=== PATIENT | female | born 1975 | race Caucasian/White ===

== ENCOUNTER → 2017-12-19 | Outpatient (CLI) | payer OTHER ==
[~2017-12-19] MED LIST: ANTI DEPRESSANT PO; BUSP5 PO; Bactrim Ds Tab1 EACH PO; CLON.5 PO; CLON1; CYCL10 PO; DIPH50 PO; ESCI10 PO; HYDR1TAB94 PO; IBUP600 PO; IBUP800 PO; LORA1 PO; MELO7.5 PO; MULVITA; NAPR220 PO; Norco 5-325 Ta1 EACH PO; OXYACE5T PO; PROM25 PO; Percocet 5-3251 EACH PO; Protonix40 MG PO; Pyridium200 MG PO; Ultram50 MG PO; Vibramycin100 MG PO; Zofran Odt4 MG SL
== END ==
LOC: LAB 17:51 → LAB SHORT 17:51
PROVIDERS: Nurse Practitioner Family
DX: Z12.4 Encounter for screening for malignant neoplasm of cervix (principal); N89.8 Other specified noninflammatory disorders of vagina
CPT/HCPCS: 87070; 87205; G0123

== ENCOUNTER 2018-09-12 19:06 | Emergency (ER) | payer OTHER ==
[~2018-09-12] VITALS: Ht 162.6 cm; Wt 74.8 kg
[2018-09-12 19:40] LABS: Source, Urine Clean Catch
[2018-09-12 19:43] LABS: Appearance, Urine Turbid (Clear); Blood, Urine 5+ (Neg); Color, Urine Amber (P-Yellow); Glucose Qualitative, Urine Neg (Neg); Ketones, Urine 1+ (Neg); Leukocyte Esterase, Urine 3+ (Neg); Nitrite, Urine Pos (Neg); Protein, Urine 3+ (Neg); Specific Gravity, Urine 1.025 (1.003-1.022); Urobilinogen, Urine 2+ (Normal)
[2018-09-12 19:45] LABS: Bilirubin, Urine 2+ (Neg)
[2018-09-12 19:50] LABS: White Blood Cells, Urine TNTC /hpf (0-5)
[2018-09-12 19:51] LABS: Bacteria Many /hpf; Red Blood Cells, Urine 50-100 /hpf (0-2); Squamous Epithelial Cells Mod /hpf (Few)
[2018-09-12] MEDS ORDERED: CEPH500 PO (19:58)
[2018-09-12] MEDS ORDERED: Pyridium200 MG PO (19:58)
== END 2018-09-12 20:07 | disposition home or self-care (01) ==
LOC: ER 19:06
PROVIDERS: Emergency Medicine
DX: N39.0 Urinary tract infection, site not specified (principal); Z79.899 Other long term (current) drug therapy; F90.9 Attention-deficit hyperactivity disorder, unspecified type; F32.9 Major depressive disorder, single episode, unspecified; F17.200 Nicotine dependence, unspecified, uncomplicated
CPT/HCPCS: 81001; 87077; 87086; 87186; 99283

== ENCOUNTER 2018-12-29 17:51 | Emergency (ER) | payer OTHER ==
[~2018-12-29] VITALS: Ht 165.1 cm; Wt 77.1 kg
[~2018-12-29 17:51] MED LIST changes: +CEPH500 PO
[2018-12-29] MEDS ORDERED: ANTIDEPRESSANT (18:11)
[2018-12-29] MEDS ORDERED: MOOD STABILIZER (18:11)
[2018-12-29] MEDS ORDERED: Zithromax250 MG PO (19:02)
[2018-12-29] MEDS ORDERED: Prednisone20 MG PO (19:02)
[2018-12-29] MEDS ORDERED: Cheratussin AC118 ML PO (19:06)
== END 2018-12-29 20:15 | disposition home or self-care (01) ==
LOC: ER 17:51
DX: J44.1 Chronic obstructive pulmonary disease with (acute) exacerbation (principal); F32.9 Major depressive disorder, single episode, unspecified; F90.9 Attention-deficit hyperactivity disorder, unspecified type; F17.200 Nicotine dependence, unspecified, uncomplicated; Z79.899 Other long term (current) drug therapy
CPT/HCPCS: 71046; 99283-25

== ENCOUNTER 2020-11-18 09:16 | Emergency (ER) | payer OTHER ==
[~2020-11-18] VITALS: Ht 162.6 cm; Wt 90.7 kg
[~2020-11-18 09:16] MED LIST changes: +ANTIDEPRESSANT; +CEFD300 PO; +Cheratussin AC118 ML PO; +Crutch1 EACH MISC; +IBU600 MG PO; +Lamictal150 MG PO; +MIRT15 PO; +MOOD STABILIZER; +ONDA4ODT SL; +Prednisone20 MG PO; +TRAZ50 PO; +VENLAFAXINE HC225 MG PO; +Zithromax250 MG PO
[2020-11-18 11:50] LABS: BASOPHILS ABSOLUTE AUTO 0.03 K/mm3 (0.00-0.23); BASOPHILS PERCENT AUTO 0 % (0-2); EOSINOPHILS ABSOLUTE AUTO 0.07 K/mm3 (0.00-0.68); EOSINOPHILS PERCENT AUTO 1 % (0-6); Hematocrit 40.4 % (33.0-51.0); Hemoglobin 13.3 g/dL (11.5-16.0); IMMATURE GRAN ABSOLUTE AUTO 0.02 K/mm3 (0.00-0.10); IMMATURE GRAN PERCENT AUTO 0 % (0-1); LYMPHOCYTES ABSOLUTE AUTO 2.75 K/mm3 (0.84-5.20); LYMPHOCYTES PERCENT AUTO 37 % (21-46); MONOCYTES ABSOLUTE AUTO 0.43 K/mm3 (0.16-1.47); MONOCYTES PERCENT AUTO 6 % (4-13); Mean Corpuscular HGB 30.9 pg (26.0-34.0); Mean Corpuscular HGB Conc 32.9 g/dL (31.5-36.5); Mean Corpuscular Volume 94 fL (80-100); Mean Platelet Volume 9.5 fL (9.1-12.4); NEUTROPHILS ABSOLUTE AUTO 4.06 K/mm3 (1.96-9.15); NEUTROPHILS PERCENT AUTO 55 % (41-73); Platelet Count 271 K/mm3 (150-400); RDW Coefficient Variation 14.1 % (11.7-14.2); White Blood Cell Count 7.36 K/mm3 (4.00-11.30)
[2020-11-18 12:06] LABS: Anion Gap 2 mmol/L (6-16); Blood Urea Nitrogen 10 mg/dL (8-24); Bun/Creatinine Ratio 13.1 (12.0-20.0); CO2, Blood 29 mmol/L (21-32); Calcium, Blood 8.9 mg/dL (8.5-10.1); Chloride, Blood 106 mmol/L (98-108); Creatinine, Blood 0.76 mg/dL (0.40-1.00); Glomerular Filtration Rate >60 (60-); Glucose, Blood 99 mg/dL (70-99); Potassium, Blood 4.1 mmol/L (3.5-5.5); Sodium, Blood 137 mmol/L (136-145)
[2020-11-18] MEDS ORDERED: NAPROXEN250 M1 PO (13:55)
[2020-11-18] MEDS ORDERED: Valium2 MG PO (13:55)
== END 2020-11-18 14:13 | disposition home or self-care (01) ==
LOC: ER 09:16
PROVIDERS: Emergency Medicine
DX: S16.1XXA Strain of muscle, fascia and tendon at neck level, initial encounter (principal); M43.6 Torticollis; J44.9 Chronic obstructive pulmonary disease, unspecified; F17.210 Nicotine dependence, cigarettes, uncomplicated; R79.82 Elevated C-reactive protein (CRP); X58.XXXA Exposure to other specified factors, initial encounter
CPT/HCPCS: 36415; 70491; 72040; 80048; 85025; 86140; 96372; 99284-25; A9270; J1885; Q9967

== ENCOUNTER → 2021-09-14 | Outpatient (CLI) | payer OTHER ==
[~2021-09-14] MED LIST changes: +NAPROXEN250 M1 PO; +Valium2 MG PO
== END | disposition home or self-care (01) ==
LOC: LAB 08:00 → LAB SHORT 08:00
DX: N39.0 Urinary tract infection, site not specified (principal)
CPT/HCPCS: 87086

== ENCOUNTER → 2021-12-21 | Outpatient (CLI) | payer OTHER ==
[2021-12-23 09:23] LABS: Candida species (DNA Probe) Negative (NEGATIVE); G. vaginalis (DNA Probe) Positive (NEGATIVE); T. vaginalis (DNA Probe) Negative (NEGATIVE)
== END | disposition home or self-care (01) ==
LOC: LAB 12:00 → LAB SHORT 12:00
PROVIDERS: Nurse Practitioner Family
DX: N89.8 Other specified noninflammatory disorders of vagina (principal)
CPT/HCPCS: 87070; 87205; 87480; 87510; 87660